=== PATIENT | male | born 1950 | race Caucasian/White ===

== ENCOUNTER 2020-03-27 00:10 | Outpatient (CLI) | payer MEDICARE, BC, SELFPAY ==
[2020-03-28 00:19] LABS: SARS-CoV-2 RNA PCR Negative
== END 2020-03-27 00:11 | disposition home or self-care (01) ==
LOC: ANHCOVIDDT 00:11
PROVIDERS: PCP Physician Assistant; Visit Provider Internal Medicine Gastroenterology
DX: Z01.818 Encounter for other preprocedural examination (principal); Z11.59 Encounter for screening for other viral diseases
CPT/HCPCS: 87635; C9803; U0003

== ENCOUNTER 2020-03-30 01:47 | Day surgery (SDC) | payer MEDICARE, BC, SELFPAY ==
[2020-03-24 11:25] VITALS: BMI 33.2
[2020-03-30 06:26] VITALS: BP 148/77; PULSE 86; RESP 18; TEMP 36.1; O2SAT 99; BMI 32.2
[2020-03-30 06:49] LABS: Glucose Point of Care 200 (65-105)
[2020-03-30] MEDS: LACTATED RINGERS 1,000 ML 150 ML IV CONT (06:49)
--- NOTE | 2020-03-30 07:01 | PM.HPGS ---
History of Present Illness History of Present Illness Consent: Risks, benefits, and alternatives have been discussed and questions answered. Patient agrees to proceed with procedure. Chief complaint: Hx Of Colon Cancer Narrative: Richy Huizar is a 69 year old W male Referred for screening colonoscopy secondary to a personal history of colon cancer. Patient underwent a right hemicolectomy in 2015. No chemotherapy was needed. Patient did have a colonoscopy in 2017 which revealed mild nonspecific colitis patient was positive for C diff was of treated of Flagyl at that time. He states his diarrhea did improve but did he has had chronic diarrhea since this time and has worsened over the past several months. He denies any rectal bleeding. There is no family history of inflammatory bowel disease. Patient denies any antibiotics no recent travel. Patient is on metformin and this may need to be switched to a different medication if this evaluation is negative. There is no family history of celiac sprue. [facility] Past Medical History Medical History Colon cancer Diabetes mellitus, type II GERD (gastroesophageal reflux disease) HLD (hyperlipidemia) HTN (hypertension) Surgical History Surgical History S/P colon resection due to cancer Family History Family History Other Diabetes mellitus Social History Social History (System 01/29/20 @ 15:28 by [place]) Smoking status: Never smoker Alcohol intake: never Gender identity (if verbalized by the patient): Male Meds Home Medications and Allergies Home Medications Medication Instructions Recorded Confirmed Type dulaglutide [Trulicity] 1.5 mg SUBCUT UD DOSE PK 09/14/19 03/30/20 History gabapentin 300 mg BID 09/14/19 03/30/20 History glimepiride 4 mg PO DAILY 09/14/19 03/30/20 History losartan 100 mg DAILY 09/14/19 03/30/20 History metformin 1,000 mg BID 09/14/19 03/30/20 History omeprazole 20 mg DAILY 09/14/19 03/30/20 History rosuvastatin 5 mg DAILY 09/14/19 03/30/20 History insulin glargine [Lantus Solostar 20 unit SUBCUT HS 03/24/20 03/30/20 History U-100 Insulin] hydrochlorothiazide 25 mg PO DAILY 03/30/20 03/30/20 History meloxicam 7.5 mg PO DAILY 03/30/20 03/30/20 History Allergies Allergy/AdvReac Type Severity Reaction Status Date / Time No Known Drug Allergies Allergy Mild Other Verified 03/24/20 11:31 HOROWITZ DRINK Allergy Severe HIVES Uncoded 03/24/20 11:31 Vital Signs Vital Signs - 24 hr 03/30/20 06:26 Temperature 36.1 C L Pulse Rate 86 Respiratory Rate 18 Blood Pressure 148/77 H Pulse Oximetry 99 Exam Const: Orientation/consciousness: patient oriented x3 Resp: Auscultation: clear to auscultation bilaterally Cardio: Rate: regular rate Rhythm: regular rhythm Heart sounds: no murmurs GI: GI Palp: Yes Soft to palpation, No Tenderness to palpation present (GI), Yes No hepatosplenomegaly present and No Palpable mass present Auscultation: normal bowel sounds Neuro: General: patient oriented x3 and no focal motor deficits Extrem: General: no pedal edema Assessment and Plan Additional Plan Screening colonoscopy secondary history of colon cancer patient also with chronic diarrhea
--- NOTE | 2020-03-30 07:01 | WPDANESEPPF ---
Anes - Initial Pre Proc Eval Procedure: Operation Date: 03/30/20 07:30 Proposed Procedures p Screening Colonoscopy - Benito Phillips MD Date/Time: 03/30/20 07:01 Surgeon: Benito Phillips MD Pre Op Diagnosis: Hx Of Colon Cancer Patient Data Age: 69 Gender: M Height: 5 ft 10 in Weight: 101.8 kg Last Vital Signs Temp 36.1 C L 03/30/20 06:26 Pulse 86 03/30/20 06:26 Resp 18 03/30/20 06:26 BP 148/77 H 03/30/20 06:26 Pulse Ox 99 03/30/20 06:26 Allergies Allergy/AdvReac Type Severity Reaction Status Date / Time No Known Drug Allergies Allergy Mild Other Verified 03/24/20 11:31 HOROWITZ DRINK Allergy Severe HIVES Uncoded 03/24/20 11:31 Home Medications Medication Instructions Recorded Confirmed Type dulaglutide [Trulicity] 1.5 mg SUBCUT UD DOSE PK 09/14/19 03/30/20 History gabapentin 300 mg BID 09/14/19 03/30/20 History glimepiride 4 mg PO DAILY 09/14/19 03/30/20 History losartan 100 mg DAILY 09/14/19 03/30/20 History metformin 1,000 mg BID 09/14/19 03/30/20 History omeprazole 20 mg DAILY 09/14/19 03/30/20 History rosuvastatin 5 mg DAILY 09/14/19 03/30/20 History insulin glargine [Lantus Solostar 20 unit SUBCUT HS 03/24/20 03/30/20 History U-100 Insulin] hydrochlorothiazide 25 mg PO DAILY 03/30/20 03/30/20 History meloxicam 7.5 mg PO DAILY 03/30/20 03/30/20 History Laboratory Tests 03/30/20 06:46 POC Capillary Glucose 200 mg/dl H mg/dl (65-105) Patient hx anesthesia problems: none Family hx anesthesia problems: none PMFSH Past Medical History Medical History Colon cancer Diabetes mellitus, type II GERD (gastroesophageal reflux disease) HLD (hyperlipidemia) HTN (hypertension) Surgical History Surgical History S/P colon resection due to cancer Family History Family History Other Diabetes mellitus Social History Social History Smoking status: Never smoker Alcohol intake: never Gender identity (if verbalized by the patient): Male Anes - Eval Final PreProcedure Day of Procedure 03/30/20 07:01 Patient weight: obese Heart: regular rate and rhythm Lungs: clear to auscultation Airway: Mallampati scale class II and other (denturtes with posts) Neurological: alert and oriented Last oral intake: >/= 8 hours ASA classification: III Emergent: no Anesthetic plan: proceed Anesthesia type and monitoring: general GIVS and standard monitoring Informed Consent: The patient's anesthetic plan and its attendant risks and benefits were discussed with the patient/family/POA. Questions were solicited and answers provided to the satisfaction of the patient/family/POA.
[2020-03-30 07:46] VITALS: BP 112/70; PULSE 81; RESP 18; O2SAT 98
[2020-03-30 07:56] VITALS: BP 116/67; PULSE 78; RESP 18; O2SAT 98
[2020-03-30 08:05] VITALS: BP 134/73; PULSE 77; RESP 18; O2SAT 98
== END 2020-03-30 08:20 | disposition home or self-care (01) ==
PROVIDERS: PCP Physician Assistant; Visit Provider Internal Medicine Gastroenterology
PROC: 0DJD8ZZ Inspection of Lower Intestinal Tract, Via Natural or Artificial Opening Endoscopic (ICD-10-PCS; CPT 45378; principal; 2020-03-30 07:30)
DX: Z12.11 Encounter for screening for malignant neoplasm of colon (principal); D12.8 Benign neoplasm of rectum; K63.5 Polyp of colon; K64.8 Other hemorrhoids; Z85.038 Personal history of other malignant neoplasm of large intestine; I10 Essential (primary) hypertension; E78.5 Hyperlipidemia, unspecified; E11.9 Type 2 diabetes mellitus without complications; K21.9 Gastro-esophageal reflux disease without esophagitis; Z79.4 Long term (current) use of insulin; Z79.84 Long term (current) use of oral hypoglycemic drugs; E66.9 Obesity, unspecified; Z68.32 Body mass index [BMI] 32.0-32.9, adult
CPT/HCPCS: 45385; 88305; J2704; J7120

== ENCOUNTER 2022-01-20 09:45 | Outpatient (RCR) | payer MEDICARE, BC, SELFPAY ==
[2021-10-29 09:06] VITALS: PULSE 85
[2021-11-01 10:43] LABS: Glucose Point of Care 87 mg/dl (65-105)
[2021-11-11 10:55] LABS: Glucose Point of Care 110 mg/dl (65-105)
== END 2022-01-20 18:36 | disposition home or self-care (01) ==
LOC: ANHCPREHAB 09:45
PROVIDERS: PCP Physician Assistant; Visit Provider Internal Medicine Interventional Cardiology
DX: Z95.1 Presence of aortocoronary bypass graft (principal)
CPT/HCPCS: 93798